=== PATIENT | male | born 1975 | race Caucasian/White ===

== ENCOUNTER 2019-12-21 08:28 | Outpatient (REF) | payer OTHER, SELFPAY ==
[2019-12-22 07:59] LABS: ALT 35 U/L (16-63); AST 28 U/L (15-37); Albumin 4.2 g/dL (3.4-5.0); Alkaline Phosphatase 64 U/L (46-116); Anion Gap 7.9 mmol/L (3-11); BUN 14 mg/dL (7-18); CO2 27.1 mmol/L (21.0-32.0); CREATININE 1.35 mg/dL (0.70-1.30); Calcium 8.8 mg/dL (8.5-10.1); Calculated LDL 118 mg/dL (<100); Chloride 101 mmol/L (98-107); Cholesterol 227 mg/dL (<200); Estimated GFR 57.15 (mL/min/1.73m2); Glucose 169 mg/dL (74-106); HDL Cholesterol 36 mg/dL (40-60); Potassium 4.2 mmol/L (3.5-5.1); Sodium 136 mmol/L (136-145); Total Protein 7.3 g/dL (6.4-8.2); Triglyceride 369 mg/dL (<150)
[2019-12-22 08:22] LABS: Hemoglobin A1C 6.5 % (3.8-5.6)
== END 2019-12-21 08:48 ==
LOC: NCHCN 08:28
PROVIDERS: PCP Physician Assistant; Visit Provider Physician Assistant
DX: R73.09 Other abnormal glucose (principal); I10 Essential (primary) hypertension
CPT/HCPCS: 80053; 80061; 83036

== ENCOUNTER 2020-11-08 16:49 | Outpatient (REF) | payer OTHER, SELFPAY ==
[2020-11-08 16:07] LABS: Anion Gap 8.9 mmol/L (3-11); BUN 15 mg/dL (7-18); CO2 27.1 mmol/L (21.0-32.0); CREATININE 1.1 mg/dL (0.70-1.30); Calcium 8.9 mg/dL (8.5-10.1); Calculated LDL 156 mg/dL (<100); Chloride 104 mmol/L (98-107); Cholesterol 241 mg/dL (<200); Glucose 156 mg/dL (74-106); HDL Cholesterol 40 mg/dL (40-60); Potassium 4.3 mmol/L (3.5-5.1); Sodium 140 mmol/L (136-145); Triglyceride 228 mg/dL (<150)
[2020-11-08 16:09] LABS: Hemoglobin A1C 6.3 % (<5.7)
== END 2020-11-08 16:50 | disposition home or self-care (01) ==
LOC: NCHCN 16:49
PROVIDERS: PCP Physician Assistant; Visit Provider Physician Assistant
DX: R73.09 Other abnormal glucose (principal); I10 Essential (primary) hypertension
CPT/HCPCS: 80048; 80061; 83036

== ENCOUNTER 2021-11-06 08:51 | Outpatient (REF) | payer OTHER, SELFPAY ==
[2021-11-06 16:14] LABS: Hemoglobin A1C 7.1 % (<5.7)
[2021-11-06 16:34] LABS: ALT 40 U/L (16-63); AST 28 U/L (15-37); Albumin 4.1 g/dL (3.4-5.0); Alkaline Phosphatase 77 U/L (46-116); Anion Gap 13.2 mmol/L (3-11); BUN 14 mg/dL (7-18); Bilirubin, Total 0.7 mg/dL (0.2-1.0); CO2 23.8 mmol/L (21.0-32.0); Calcium 8.8 mg/dL (8.5-10.1); Calculated LDL 133 mg/dL (<100); Chloride 104 mmol/L (98-107); Cholesterol 243 mg/dL (<200); Glucose 161 mg/dL (74-106); HDL Cholesterol 45 mg/dL (40-60); Potassium 3.9 mmol/L (3.5-5.1); Sodium 141 mmol/L (136-145); Total Protein 7.3 g/dL (6.4-8.2); Triglyceride 326 mg/dL (<150)
== END 2021-11-06 08:52 | disposition home or self-care (01) ==
LOC: NCHCN 08:51
PROVIDERS: PCP Physician Assistant; Visit Provider Physician Assistant
DX: E11.8 Type 2 diabetes mellitus with unspecified complications (principal); I10 Essential (primary) hypertension; E78.5 Hyperlipidemia, unspecified
CPT/HCPCS: 80053; 80061; 83036

== ENCOUNTER 2022-08-06 01:40 | Outpatient (CLI) | payer OTHER, SELFPAY ==
--- NOTE | 2022-08-06 10:10 | DI.RAD_ITS ---
Exam(s) XR CERVICAL SPINE COMP 4-5V EXAM: XR CERVICAL SPINE COMP 4-5V CLINICAL HISTORY: CHRONIC NECK PAIN, M54.2,S/P TRAUMA YEARS AGO. TECHNIQUE: 2D digital imaging was performed. Six images were obtained. AP, odontoid, lateral and ginny ateral oblique images were obtained. COMPARISON: No exams were available for comparison FINDINGS: The odontoid is intact. The lateral masses are well aligned. There is normal alignment of the cervi robb spine. The vertebral bodies, disc spaces and posterior elements are well maintained. Mild promi nence of the endplates is seen at C5-6 and C6-C7. No acute fracture or subluxation is present. There is mild narrowing of the left neural foramen at C5-C6 and the right neural foramen at C6-C7. The cerv ical thoracic junction is well maintained. The prevertebral soft tissues are unremarkable. Lung apic es are clear. 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 DATA REPOSITORY: RADIATION DOSE DELIVERED:
== END 2022-08-06 02:00 ==
LOC: DI 01:40
PROVIDERS: PCP Physician Assistant; Visit Provider Physician Assistant
DX: M47.812 Spondylosis without myelopathy or radiculopathy, cervical region (principal)
CPT/HCPCS: 72050

== ENCOUNTER 2022-11-11 16:32 | Outpatient (REF) | payer OTHER, SELFPAY ==
[2022-11-11 17:20] LABS: Anion Gap 8.7 mmol/L (3-11); BUN 20 mg/dL (7-18); CO2 31.3 mmol/L (21.0-32.0); CREATININE 1.4 mg/dL (0.70-1.30); Calcium 9.2 mg/dL (8.5-10.1); Calculated LDL 133 mg/dL (<100); Chloride 96 mmol/L (98-107); Cholesterol 252 mg/dL (<200); Glucose 184 mg/dL (74-106); HDL Cholesterol 47 mg/dL (40-60); Potassium 3.3 mmol/L (3.5-5.1); Sodium 136 mmol/L (136-145); Triglyceride 362 mg/dL (<150)
[2022-11-11 17:24] LABS: Hemoglobin A1C 7.2 % (<5.7)
== END 2022-11-11 16:33 | disposition home or self-care (01) ==
LOC: NCHCN 16:32
PROVIDERS: PCP Physician Assistant; Visit Provider Physician Assistant
DX: I10 Essential (primary) hypertension (principal); R73.03 Prediabetes; M54.2 Cervicalgia
CPT/HCPCS: 80048; 80061; 83036

== ENCOUNTER 2023-11-13 16:55 | Outpatient (REF) | payer OTHER, SELFPAY ==
[2023-11-13 16:11] LABS: ALT 37 U/L (16-63); AST 24 U/L (15-37); Alkaline Phosphatase 83 U/L (46-116); Anion Gap 8.8 mmol/L (3-11); BUN 14 mg/dL (7-18); Bilirubin, Total 0.8 mg/dL (0.2-1.0); CO2 30.2 mmol/L (21.0-32.0); CREATININE 1.2 mg/dL (0.70-1.30); Calcium 9.3 mg/dL (8.5-10.1); Calculated LDL 86 mg/dL (<100); Chloride 102 mmol/L (98-107); Cholesterol 163 mg/dL (<200); Estimated GFR 74.13 (mL/min/1.73m2); Glucose 199 mg/dL (74-106); HDL Cholesterol 49 mg/dL (40-60); Potassium 4.2 mmol/L (3.5-5.1); Sodium 141 mmol/L (136-145); Triglyceride 144 mg/dL (<150)
[2023-11-13 17:33] LABS: Hemoglobin A1C 8.8 % (<5.7)
== END 2023-11-13 16:56 | disposition home or self-care (01) ==
LOC: NCHCN 16:55
PROVIDERS: PCP Physician Assistant; Visit Provider Physician Assistant
DX: E11.9 Type 2 diabetes mellitus without complications (principal); E78.5 Hyperlipidemia, unspecified; I10 Essential (primary) hypertension
CPT/HCPCS: 80053; 80061; 83036

== ENCOUNTER 2025-04-08 10:21 | Outpatient (REF) | payer OTHER, SELFPAY ==
[2025-04-08 16:20] LABS: ALT 36 U/L (16-63); AST 26 U/L (15-37); Albumin 4.1 g/dL (3.4-5.0); Alkaline Phosphatase 75 U/L (46-116); Anion Gap 11.0 mmol/L (3-11); BUN 14 mg/dL (7-18); Bilirubin, Total 1.0 mg/dL (0.2-1.0); CO2 26.0 mmol/L (21.0-32.0); Calcium 9.1 mg/dL (8.5-10.1); Calculated LDL 90 mg/dL (<100); Chloride 102 mmol/L (98-107); Cholesterol 190 mg/dL (<200); Estimated GFR 60.85 (mL/min/1.73m2); Glucose 218 mg/dL (74-106); HDL Cholesterol 51 mg/dL (>or=40); Potassium 4.1 mmol/L (3.5-5.1); Sodium 139 mmol/L (136-145); Total Protein 7.4 g/dL (6.4-8.2); Triglyceride 246 mg/dL (<150)
[2025-04-08 16:50] LABS: Hemoglobin A1C 7.4 % (<5.7)
== END 2025-04-08 10:22 | disposition home or self-care (01) ==
LOC: NCHCN 10:21
PROVIDERS: PCP Physician Assistant; Visit Provider Physician Assistant
DX: E11.9 Type 2 diabetes mellitus without complications (principal)
CPT/HCPCS: 80053; 80061; 82306; 83036; 83735; 84439; 84443; 85014; 85018